=== PATIENT | male | born 1995 | race African-American/Black ===

== ENCOUNTER 2016-11-25 13:11 | Emergency (ER) | payer OTHER ==
[~2016-11-25] VITALS: Ht 165.1 cm; Wt 66.4 kg
[2016-11-25] MEDS ORDERED: ACETAMINOPHEN TAB 650MG DOSE (2X325MG) PO ONE (14:00)
[2016-11-25] MEDS ORDERED: IBUP-1022 PO (14:57)
[2016-11-25 15:10] VITALS: BP 149/91
--- NOTE | 2016-11-25 16:02 | REP ---
Right hand four views: Mineralization and joint spaces are normal. There is no fracture or dislocation. No calcifications or foreign bodies. Impression: Negative right hand. Signed by Kapil Pillai MD 11/25/2016 02:50 P
[2017-02-27] MEDS ORDERED: CIPR500T3 (12:58)
[2017-02-27] MEDS ORDERED: COLA100C5 PO (16:56)
== END 2016-11-25 15:11 | disposition home or self-care (01) ==
LOC: M ED 13:11
DX: S60.221A Contusion of right hand, initial encounter (principal); V43.62XA Car passenger injured in collision with other type car in traffic accident, initial encounter; Y92.410 Unspecified street and highway as the place of occurrence of the external cause; Y99.9 Unspecified external cause status; Y93.9 Activity, unspecified; Z88.2 Allergy status to sulfonamides

== ENCOUNTER → 2017-03-25 | Outpatient (REF) | payer OTHER ==
[~2017-03-25] MED LIST: CIPR500T3; COLA100C5 PO; IBUP-1022 PO
== END ==
LOC: M SMT 17:18
PROVIDERS: ATTEND Nurse Practitioner Family
DX: N39.0 Urinary tract infection, site not specified (principal)